=== PATIENT | male | born 1965 | race Caucasian/White ===

== ENCOUNTER 2018-02-24 17:50 | Emergency (ER) | payer BC ==
[~2018-02-24] VITALS: Ht 167.6 cm; Wt 81.6 kg
[2018-02-24] MEDS ORDERED: cloNIDine HCL 0.1 MG TAB PO ONE (18:30)
[2018-02-24 19:20] LABS: Basophils # (auto) 0 uL; Basophils % (auto) 0.4 % (0.0-2.0); Eosinophils # (auto) 0.2 uL; Eosinophils % (auto) 1.5 % (0.0-7.0); Hematocrit 45.1 % (41.0-53.0); Hemoglobin 15.5 g/dL (13.5-17.5); Lymphocytes # (auto) 1.9 uL; Lymphocytes % (auto) 18.3 % (10.0-50.0); Mean Corpuscular Hemoglobin 31.4 pg (28.0-32.0); Mean Corpuscular Hgb Conc. 34.4 g/dL (32.0-36.0); Mean Corpuscular Volume 91.4 fL (80.0-100.0); Monocytes % (auto) 9.5 % (0.0-12.0); Neutrophils # (auto) 7.4 uL; Neutrophils % (auto) 70.3 % (37.0-80.0); Nucleated Red Blood Cells % 0.1 %; Platelet Count (auto) 287 10^3/uL (140-450); Red Blood Cells 4.93 10^6/uL (4.5-5.90); Red Cell Distribution Width 12.7 % (11.8-14.3); White Blood Cell 10.5 10^3/uL (4.4-10.8)
[2018-02-24 19:39] LABS: Alanine Aminotransferase 43 U/L (16-61); Albumin 3.9 g/dL (3.4-5.0); Anion Gap 11 (5-15); Aspartate Aminotransferase 21 U/L (15-37); BUN/Creatinine Ratio 23.4; Blood Urea Nitrogen 22 mg/dL (7-18); Calcium 8.9 mg/dL (8.5-10.1); Carbon Dioxide 22 mmol/L (21-32); Chloride 107 mmol/L (98-107); GFR African American 108 mL/min; GFR Non-African American 89 mL/min; Glucose 92 mg/dL (74-106); Magnesium 2.1 mg/dL (1.6-2.6); Potassium 3.8 mmol/L (3.5-5.1); Sodium 140 mmol/L (136-145)
[2018-02-24 19:44] LABS: Alkaline Phosphatase 81 U/L (45-117); Bilirubin, Total 0.4 mg/dL (0.2-1.0); Total Protein 7.7 g/dL (6.4-8.2)
[2018-02-24 19:45] VITALS: BP 111/81
== END 2018-02-24 20:50 | disposition home or self-care (01) ==
LOC: ER 17:50
DX: R07.89 Other chest pain (principal); I10 Essential (primary) hypertension
CPT/HCPCS: 36415; 80053; 83735; 84484; 85025; 93005; 99285; J7030

== ENCOUNTER 2019-09-17 23:13 | Emergency (ER) | payer BC ==
[~2019-09-17] VITALS: Ht 167.6 cm; Wt 86.2 kg
[2019-09-17] MEDS ORDERED: diphenhdrAMINE HCL 50 MG/1 ML VL IV ONE (23:45)
[2019-09-17] MEDS ORDERED: SODIUM CHLORIDE 0.9% 1,000 ML IV ONE (23:45)
[2019-09-17] MEDS ORDERED: methylPREDNISolone SOD SUCC 125 MG/2 ML VL IV ONE (23:45)
[2019-09-18 01:45] LABS: Urine WBC None Seen /hpf (0 - 3)
[2019-09-18 01:49] VITALS: BP 138/93
[2019-09-18 02:11] LABS: Urine Bacteria NONE SEEN /hpf (None Seen); Urine Blood Negative /uL (Negative); Urine Specific Gravity 1.007 (1.001-1.035)
== END 2019-09-18 01:56 | disposition home or self-care (01) ==
LOC: ER 23:15
DX: B02.9 Zoster without complications (principal); I10 Essential (primary) hypertension
CPT/HCPCS: 70450; 81001; 96374; 96375; 99284; J1200; J2930; J7030

== ENCOUNTER 2020-02-28 20:46 | Emergency (ER) | payer BC ==
[~2020-02-28] VITALS: Ht 167.6 cm; Wt 86.2 kg
[2020-02-28 21:51] LABS: Urine Bacteria FEW /hpf (None Seen); Urine Blood Negative /uL (Negative); Urine Mucus FEW (None Seen); Urine Specific Gravity 1.009 (1.001-1.035); Urine WBC 20 /hpf (0 - 3)
[2020-02-28 22:04] LABS: Basophils # (auto) 0 10 ^3/uL (0-0.2); Basophils % (auto) 0.3 % (0.0-2.0); Eosinophils # (auto) 0.2 10 ^3/uL (0-0.8); Eosinophils % (auto) 1.3 % (0.0-7.0); Hematocrit 44.4 % (41.0-53.0); Hemoglobin 15.3 g/dL (13.5-17.5); Lymphocytes # (auto) 2.3 10 ^3/uL (0.4-5.4); Lymphocytes % (auto) 19.6 % (10.0-50.0); Mean Corpuscular Hemoglobin 30.7 pg (28.0-32.0); Mean Corpuscular Hgb Conc. 34.3 g/dL (32.0-36.0); Mean Corpuscular Volume 89.4 fL (80.0-100.0); Monocytes # (auto) 1.1 10 ^3/uL (0-1.3); Monocytes % (auto) 9.4 % (0.0-12.0); Neutrophils # (auto) 8.2 10 ^3/uL (1.6-8.6); Neutrophils % (auto) 69.4 % (37.0-80.0); Nucleated Red Blood Cells % 0.1 %; Platelet Count (auto) 283 10^3/uL (140-450); Red Blood Cells 4.97 10^6/uL (4.5-5.90); Red Cell Distribution Width 12.8 % (11.8-14.3); White Blood Cell 11.8 10^3/uL (4.4-10.8)
[2020-02-28 22:23] LABS: Albumin 4.2 g/dL (3.4-5.0); Calcium 8.9 mg/dL (8.5-10.1); Potassium 3.6 mmol/L (3.5-5.1)
[2020-02-28 22:26] LABS: BUN/Creatinine Ratio 15.2; Bilirubin, Total 0.7 mg/dL (0.2-1.0); Total Protein 7.6 g/dL (6.4-8.2)
[2020-02-29] MEDS ORDERED: metroNIDAZOLE 500 MG TAB PO ONE (01:15)
[2020-02-29] MEDS ORDERED: CIPROFLOXACIN HCL 500 MG TAB PO ONE (01:15)
[2020-02-29 01:55] VITALS: BP 142/91
== END 2020-02-29 01:58 | disposition home or self-care (01) ==
LOC: ER 20:46
DX: N39.0 Urinary tract infection, site not specified (principal); K52.9 Noninfective gastroenteritis and colitis, unspecified; K76.0 Fatty (change of) liver, not elsewhere classified; I10 Essential (primary) hypertension; Z87.442 Personal history of urinary calculi
CPT/HCPCS: 36415; 74176; 80053; 81001; 82150; 83690; 85025

== ENCOUNTER 2021-03-01 11:15 | Emergency (ER) | payer BC ==
[~2021-03-01] VITALS: Ht 167.6 cm; Wt 83.9 kg
[~2021-03-01 11:15] MED LIST: METO25TA93 PO; MISC450C PO; MULT-1058 PO; PANT40T PO; TADA20TA PO
[2021-03-01] MEDS ORDERED: ASPirin 81 mg TAB PO ONE (11:45)
[2021-03-01 12:07] LABS: Basophils # (auto) 0.2 10 ^3/uL (0-0.2); Eosinophils # (auto) 0.2 10 ^3/uL (0-0.8); Eosinophils % (auto) 2.2 % (0.0-7.0); Hemoglobin 15.7 g/dL (13.5-17.5); Lymphocytes # (auto) 1.7 10 ^3/uL (0.4-5.4); Lymphocytes % (auto) 16.2 % (10.0-50.0); Mean Corpuscular Hemoglobin 30.7 pg (28.0-32.0); Mean Corpuscular Volume 90.2 fL (80.0-100.0); Monocytes # (auto) 0.8 10 ^3/uL (0-1.3); Neutrophils # (auto) 7.5 10 ^3/uL (1.6-8.6); Neutrophils % (auto) 71.6 % (37.0-80.0); Nucleated Red Blood Cells % 0.2 %; Platelet Count (auto) 317 10^3/uL (140-450); Red Cell Distribution Width 12.8 % (11.8-14.3); White Blood Cell 10.5 10^3/uL (4.4-10.8)
[2021-03-01 12:27] LABS: Albumin 4.2 g/dL (3.4-5.0); Anion Gap 8 (5-15); Blood Urea Nitrogen 13 mg/dL (7-18); Calcium 9.2 mg/dL (8.5-10.1); Carbon Dioxide 25 mmol/L (21-32); Chloride 106 mmol/L (98-107); Glucose 102 mg/dL (74-106); Magnesium 2.2 mg/dL (1.6-2.6); Potassium 3.9 mmol/L (3.5-5.1); Sodium 139 mmol/L (136-145)
[2021-03-01 12:30] LABS: INR 0.97 (0.9-1.15); Partial Thromboplastin Time 26.7 sec (23.0-31.2)
[2021-03-01 12:34] LABS: Alanine Aminotransferase 38 U/L (16-61); Alkaline Phosphatase 99 U/L (45-117); Aspartate Aminotransferase 18 U/L (15-37); BUN/Creatinine Ratio 13.7; Bilirubin, Total 0.4 mg/dL (0.2-1.0); GFR African American 105 mL/min; GFR Non-African American 87 mL/min; Total Protein 7.8 g/dL (6.4-8.2)
[2021-03-01 17:03] VITALS: BP 119/74
== END 2021-03-01 17:32 | disposition home or self-care (01) ==
LOC: ER 11:15
DX: R07.89 Other chest pain (principal); R94.6 Abnormal results of thyroid function studies; I10 Essential (primary) hypertension; K21.9 Gastro-esophageal reflux disease without esophagitis; F17.210 Nicotine dependence, cigarettes, uncomplicated; Z79.899 Other long term (current) drug therapy; Z90.49 Acquired absence of other specified parts of digestive tract
CPT/HCPCS: 36415; 71045; 80053; 83735; 83880; 84443; 84484; 85025; 85379; 85610; 85730; 93005

== ENCOUNTER 2021-12-02 09:43 | Emergency (ER) | payer BC ==
[~2021-12-02] VITALS: Ht 167.6 cm; Wt 83.5 kg
[2021-12-02 10:12] LABS: Basophils # (auto) 0.1 10 ^3/uL (0-0.2); Basophils % (auto) 0.5 % (0.0-2.0); Eosinophils # (auto) 0.1 10 ^3/uL (0-0.8); Eosinophils % (auto) 0.9 % (0.0-7.0); Hematocrit 46.7 % (41.0-53.0); Hemoglobin 15.7 g/dL (13.5-17.5); Lymphocytes # (auto) 1.6 10 ^3/uL (0.4-5.4); Lymphocytes % (auto) 15.7 % (10.0-50.0); Mean Corpuscular Hemoglobin 30.3 pg (28.0-32.0); Mean Corpuscular Hgb Conc. 33.7 g/dL (32.0-36.0); Mean Corpuscular Volume 89.9 fL (80.0-100.0); Monocytes # (auto) 0.7 10 ^3/uL (0-1.3); Monocytes % (auto) 7.4 % (0.0-12.0); Neutrophils # (auto) 7.6 10 ^3/uL (1.6-8.6); Neutrophils % (auto) 75.5 % (37.0-80.0); Red Blood Cells 5.19 10^6/uL (4.5-5.90); Red Cell Distribution Width 12.6 % (11.8-14.3); White Blood Cell 10.1 10^3/uL (4.4-10.8)
[2021-12-02 10:39] LABS: Albumin 4.1 g/dL (3.4-5.0); BUN/Creatinine Ratio 16.5; Calcium 9.3 mg/dL (8.5-10.1); Potassium 3.9 mmol/L (3.5-5.1)
[2021-12-02 10:44] LABS: Total Protein 7.8 g/dL (6.4-8.2)
[2021-12-02 11:24] LABS: Bilirubin, Total 0.4 mg/dL (0.2-1.0)
[2021-12-02 14:29] VITALS: BP 158/86
== END 2021-12-02 14:28 | disposition home or self-care (01) ==
LOC: ER 09:43
DX: R07.89 Other chest pain (principal); I10 Essential (primary) hypertension; F17.210 Nicotine dependence, cigarettes, uncomplicated; Z90.49 Acquired absence of other specified parts of digestive tract
CPT/HCPCS: 36415; 70450; 71045; 80053; 84484; 85025; 93005

== ENCOUNTER 2025-08-02 14:31 | Inpatient (IN) | payer BC ==
[~2025-08-02] VITALS: Ht 167.6 cm; Wt 90.0 kg
[2025-08-02 14:56] LABS: Hematocrit 52.1 % (41.0-53.0); Hemoglobin 17.8 g/dL (13.5-17.5); Mean Corpuscular Hemoglobin 31.3 pg (28.0-32.0); Mean Corpuscular Volume 92.0 fL (80.0-100.0); Nucleated Red Blood Cells % 0.1 %
[2025-08-02 15:07] LABS: Chloride 104 mmol/L (98-107); Potassium 4.2 mmol/L (3.5-5.1); Sodium 138 mmol/L (136-145)
[2025-08-02 15:08] LABS: Anion Gap 9 (5-15); Calcium 9.4 mg/dL (8.7-10.4); Carbon Dioxide 25 mmol/L (20-31)
[2025-08-02 15:13] LABS: BUN/Creatinine Ratio 9.2 (10.0-20.0); Glucose 91 mg/dL (74-106)
--- NOTE | 2025-08-02 15:13 | DVH ---
CHEST RADIOGRAPH Indication: CP Technique: Frontal and lateral view of the chest was obtained Comparison: CHEST PORTABLE on DOS: 12/02/21, CHEST PORTABLE on DOS: 03/01/21 FINDINGS: Lines and Tubes: None Lungs: Clear Pleura: No effusion. No pneumothorax. Cardiomediastinal contours: Unremarkable Bones: Unremarkable IMPRESSION: No evidence of acute disease.
[2025-08-02 15:14] LABS: Blood Urea Nitrogen 9 mg/dL (9-23)
[2025-08-02 15:56] LABS: RBC Morphology Normal
[2025-08-02] MEDS: hydrALAZINE HCL 20 MG/ML VL IV ONE (18:48)
[2025-08-02] MEDS ORDERED: ONDANSETRON HCL 4 MG/2 ML VIAL IV PRN (21:45)
[2025-08-02 22:26] LABS: Alanine Aminotransferase 35.0 U/L (7-40); Albumin 4.7 g/dL (3.2-4.8); Alkaline Phosphatase 88.0 U/L (46-116); Bilirubin, Direct 0.2 mg/dL (<0.3); Bilirubin, Total 0.7 mg/dL (0.2-1.0); Magnesium 1.9 mg/dL (1.6-2.6); Total Protein 7.3 g/dL (5.7-8.2)
--- NOTE | 2025-08-02 22:48 | DVH ---
Carotid Duplex Clinical History: dizziness Comparison: None Technique: Duplex Doppler evaluation of the extracranial carotid and vertebral arteries including color Doppler and spectral/pulsed waveform analysis was performed. Findings: RIGHT SIDE: The peak systolic velocities are 119 cm/s in the CCA, 91 cm/s in the ICA. The ICA/CCA ratio is 0.76. The external carotid artery is patent with peak systolic velocity of 151 cm/s proximally. There is appropriate antegrade flow in the right vertebral artery. No significant atherosclerotic tristin que. LEFT SIDE: The peak systolic velocities are 127 cm/s in the CCA, 71 cm/s in the ICA. The ICA/CCA ratio is 0.56. The external carotid artery is patent with peak systolic velocity of 120 cm/s proximally. There is appropriate antegrade flow in the left vertebral artery. No significant atherosclerotic plaq ue. Bilateral thyroid lobe heterogeneous and cystic structures measure up to 1.0 cm on the right and 0.7 cm on the left. IMPRESSION: 1. No hemodynamically significant stenosis noted in the right carotid system. 2. No hemodynamically significant stenosis noted in the left carotid system. 3. Elevated velocity of the right external carotid artery. 4. Bilateral thyroid lobe heterogeneous and cystic structures as discussed above. Nonemergent thyroid ultrasound recommended for further evaluation. Reference: Radiology 2003; 229:340-346 Normal ICA PSV is <125 cm/sec and no plaque or intimal thickening is visible sonographically additional criteria include ICA/CCA PSV ratio <2.0 and ICA EDV <40 cm/sec <50% ICA stenosis ICA PSV is <125 cm/sec and plaque or intimal thickening is visible sonographically additional criteria include ICA/CCA PSV ratio <2.0 and ICA EDV <40 cm/sec 50-69% ICA stenosis ICA PSV is 125-230 cm/sec and plaque is visible sonographically additional criteria include ICA/CCA PSV ratio of 2.0-4.0 and ICA EDV of 40-100 cm/sec 70% ICA stenosis but less than near occlusion ICA PSV is >230 cm/sec and visible plaque and luminal narrowing are seen at richards-scale and color Dopp ler ultrasound (the higher the Doppler parameters lie above the threshold of 230 cm/sec, the greater the likelihood of severe disease) additional criteria include ICA/CCA PSV ratio >4 and ICA EDV >100 cm/sec
[2025-08-02] MEDS: PANTOPRAZOLE 40 MG TAB PO ONE (23:15)
[2025-08-02] MEDS: METOPROLOL SUCCINATE XL 50 MG TAB PO ONE (23:18)
[2025-08-02] MEDS: ENOXAPARIN SOD 40 MG/0.4 ML SYRINGE SC SCH (23:19)
[2025-08-03] VITALS (8 sets, daily range): BP systolic 114–137; BP diastolic 74–84; PULSE 89–114; RESP 16–18; TEMP 97.9–99.2; O2SAT 96–100
[2025-08-03 01:21] LABS: Urine Protein, UAD TRACE (Negative)
[2025-08-03 01:42] LABS: Amphetamine Screen, Urine Neg (NEGATIVE); Barbiturate Scree,Urine Neg (NEGATIVE); Benzodiazephine Screen, Urine Neg (NEGATIVE); Cannabinoid Screen, Urine Neg (NEGATIVE); Cocaine Screen, Urine Neg (NEGATIVE); Opiate Scree,Urine Neg (NEGATIVE); Phencyclidine Screen, Urine Neg (NEGATIVE)
[2025-08-03] MEDS: PANTOPRAZOLE 40 MG TAB PO SCH (06:24)
[2025-08-03 07:05] LABS: Hematocrit 50.4 % (41.0-53.0); Hemoglobin 17.3 g/dL (13.5-17.5); Mean Corpuscular Hemoglobin 31.3 pg (28.0-32.0); Mean Corpuscular Volume 91.4 fL (80.0-100.0); Nucleated Red Blood Cells % 0.1 %
[2025-08-03 07:22] LABS: Alanine Aminotransferase 27 U/L (7-40); Albumin 4.4 g/dL (3.2-4.8); Alkaline Phosphatase 70 U/L (46-116); Anion Gap 8 (5-15); BUN/Creatinine Ratio 11.1 (10.0-20.0); Bilirubin, Total 1.1 mg/dL (0.2-1.0); Blood Urea Nitrogen 10 mg/dL (9-23); Calcium 9.4 mg/dL (8.7-10.4); Carbon Dioxide 25 mmol/L (20-31); Chloride 105 mmol/L (98-107); Glucose 97 mg/dL (74-106); Potassium 4.0 mmol/L (3.5-5.1); Sodium 138 mmol/L (136-145); Total Protein 6.9 g/dL (5.7-8.2)
[2025-08-03] MEDS: METOPROLOL SUCCINATE XL 50 MG TAB PO SCH (09:13)
[2025-08-03] MEDS: LOSARTAN POTASSIUM 25 MG TAB PO SCH (09:14)
--- NOTE | 2025-08-03 09:45 | DVH ---
CT HEAD WITHOUT CONTRAST INDICATION: DIZZINESS EXAM DATE: 08/03/2025 09:13 AM COMPARISON: HEAD WITHOUT CONTRAST on DOS: 12/02/21 RADIATION DOSE: CTDIvol: 59 mGy, DLP: 1056 mGy*cm PROCEDURE: CT scans of the head were obtained from the vertex to the skull base. Sagittal and coronal reconstructions were provided. All CT scans at this medical facility are performed using dose modulation techniques as appropriate t o a performed exam including the following: Automated exposure control was utilized; adjustment of th e MA and/or KV according to patient size; and use of iterative reconstruction technique. FINDINGS: There is sulcal and ventricular prominence. The brainshows normal morphology and richards-whi te matter differentiation, without intracranial hemorrhage, extra-axial fluid collection, mass effect or acute large vessel infarct. The ventricles are normal in size. The basal cisterns are patent. The skull and visible facial bones are intact. The paranasal sinuses, mastoid air cells and middle ear c avities are well-aerated. The soft tissues of the scalp are unremarkable. IMPRESSION: No acute intracranial abnormality.
--- NOTE | 2025-08-03 11:16 | ED.PDOC ---
HPI Comments This is a 60 year old male presenting to the ED with chief complaint of HTN. Patient reports that he had noted his blood pressure to be 176/100 after work and is now experiencing mild chest pain with associated headache, nausea, and bilateral shoulder pain. Patient relays that his BP is never normally this high. Patient denies any SOB, dizziness, vomiting, abdominal pain, syncope, or further symptoms at this time. Chief Complaint: High Blood Pressure Time Seen by MD: 14:58 Primary Care Provider: PEPE Pierce Notes: Nurses Notes, Medications, Allergies Allergies: Coded Allergies: NO KNOWN ALLERGIES (Unverified , 07/23/14) Home Meds Reported Medications Multiple Vitamins W/ Minerals (Multivitamin) 1 Tab Tab, 1 TAB PO DAILY, TAB 07/12/20 Misc Natural Products (SAW [place]) Unknown Strength Cap, PO DAILY, CAP 07/12/20 Tadalafil (Cialis) 20 Mg Tab, 20 MG PO PRN, TAB 07/12/20 Pantoprazole Sodium Sesquihydr (Pantoprazole Sodium) 40 Mg Tab, 40 MG PO DAILY, TAB 07/12/20 Metoprolol Succinate (Metoprolol Succinate Er) 25 Mg Tab, 25 MG PO DAILY for 30 Days, MG 07/12/20 Information Source: Patient Mode of Arrival: Ambulatory Severity: Moderate Timing: Hours Duration: Since onset Prehospital treatment: None Location: Chest (L) Radiation: Shoulder (R), Shoulder (L) Quality: Aching Onset: At Rest Cardiac Risk Factors: HTN PE Risk Factors: None Past Medical History PAST MEDICAL HISTORY: GERD, HTN Surgical History: Cholecystectomy, Denies all surgeries Family History Family History: Reviewed,noncontributory to illness, Family hx of heart arnulfo, Family hx of HTN Social History Smoker: Chew, Less Than 1 Pack/Day Alcohol: Occasionally Drugs: Denies Drug Use Lives In: Home Constitutional: denies: chills, diaphoresis, fatigue, fever, malaise, sweats, weakness, others EENTM: denies: blurred vision, double vision, ear bleeding, ear discharge, ear drainage, ear pain, ear ringing, eye pain, eye redness, hearing loss, mouth pain, mouth swelling, nasal discharge, nose bleeding, nose congestion, nose pain, photophobia, tearing, throat pain, throat swelling, voice changes, others Respiratory: denies: cough, hemoptysis, orthopnea, SOB at rest, shortness of breath, SOB with excertion, stridor, wheezing, others Cardiovascular: reports: chest pain; denies: dizzy spells, diaphoresis, Dyspnea on exertion, edema, irregular heart beat, left arm pain, lightheadedness, palp itations, PND, syncope, others Gastrointestinal: reports: nausea; denies: abdomen distended, abdominal pain, blood streaked bowels, constipated, diarrhea, dysphagia, difficulty swallowing, hematemesis, melena, poor appetite, poor fluid intake, rectal bleeding, rectal pain, vomiting, others Genitourinary: denies: burning, dysuria, flank pain, frequency, hematuria, incontinence, penile discharge, penile sore, pain, testicle pain, testicle swelling, urgency, others Neurological: reports: headache; denies: dizziness, fainting, left sided numbness, left sided weakness, numbness, paresthesia, pre-existing deficit, right sided numbness, right sided weakness, seizure, speech problems, tingling, tremors, weakness, others Musculoskeletal: reports: others (shoulder pain); denies: back pain, gout, joint pain, joint swelling, muscle pain, muscle stiffness, neck pain Integumetry: denies: bruises, change in color, change in hair/nails, dryness, laceration, lesions, lumps, rash, wounds, others Allergic/Immunocompromised: denies: Difficulty Healing, Frequent Infections, Hives, Itching, others Hematologic/Lymphatic: denies: anemia, blood clots, easy bleeding, easy bruising, swollen glands, others Endocrine: denies: excessive hunger, excessive sweating, excessive thirst, excessive urination, flushing, intolerance to cold, intolerance to heat, unexplained weight gain, unexplained weight loss, others Psychiatric: denies: anxiety, bipolar disorder, depression, hopeless, panic disorder, schizophrenia, sleepless, suicidal, others All Other Systems: Reviewed and Negative Physical Exam General Appearance: No Apparent Distress, Normal HEENT: Normal ENT Inspection, Pharynx Normal, TMs Normal Neck: Full Range of Motion, Non-Tender, Normal, Normal Inspection Respiratory: Chest Non-Tender, Lungs Clear, No Accessory Muscle Use, No Respiratory Distress, Normal Breath Sounds Cardiovascular: No Edema, No JVD, No Murmur, No Gallop, Normal Peripheral Pulses, Regular Rate/Rhythm Breast Exam: Deferred Gastrointestinal: No Organomegaly, Non Tender, No Pulsatile Mass, Normal Bowel Sounds, Soft Genitalia: Deferred Pelvic: Deferred Rectal: Deferred Extremities: No calf tenderness, Normal capillary refill, Normal inspection, Normal range of motion, Non-tender, No pedal edema Musculoskeletal : Apperance: Normal Neurologic: Alert, knockout worker II-XII nml as Tested, No Motor Deficits, Normal Affect, Normal Mood, No Sensory Deficits Cerebellar Function: Normal Reflexes: Normal Skin: Dry, Normal Color, Warm Lymphatic: No Adenopathy Was a procedure done? Was a procedure done?: No CP Differential Dx Differential Diagnosis: Heart Failure, MAT, IA Differential Diagnosis: HTN Essential, HTN Accelerated Differential Diagnosis: Gastritis, Myocardial Infarction, Pericarditis X-Ray, Labs, Meds, VS Vital Signs Date Time Temp Pulse Resp B/P (MAP) Pulse Ox O2 Delivery O2 Flow Rate FiO2 08/02/25 17:37 94 17 98 Room Air 08/02/25 17:37 97.9 94 17 165/108 (127) 98 97.9 08/02/25 14:40 103 08/02/25 14:32 97.3 101 18 155/98 95 97.3 Lab Test 08/02/25 17:32 08/02/25 15:30 08/02/25 14:45 Range/Units Troponin I High Sensitivity < 3 L 3 L 3 L </=54 ng/L White Blood Count 11.8 H 4.4-10.8 10^3/uL Red Blood Count 5.67 4.5-5.90 10^6/uL Hemoglobin 17.8 H 13.5-17.5 g/dL Hematocrit 52.1 41.0-53.0 % Mean Corpuscular Volume 92.0 80.0-100.0 fL Mean Corpuscular Hemoglobin 31.3 28.0-32.0 pg Mean Corpuscular Hemoglobin Concent 34.1 32.0-36.0 g/dL Red Cell Distribution Width 14.0 11.8-14.3 % Platelet Count 262 140-450 10^3/uL Mean Platelet Volume 7.0 6.9-10.8 fL Neutrophils (%) (Auto) 70.1 37.0-80.0 % Lymphocytes (%) (Auto) 18.2 10.0-50.0 % Monocytes (%) (Auto) 9.2 0.0-12.0 % Eosinophils (%) (Auto) 2.1 0.0-7.0 % Basophils (%) (Auto) 0.4 0.0-2.0 % Neutrophils # (Auto) 8.3 1.6-8.6 10 ^3/uL Lymphocytes # (Auto) 2.2 0.4-5.4 10 ^3/uL Monocytes # (Auto) 1.1 0-1.3 10 ^3/uL Eosinophils # (Auto) 0.2 0-0.8 10 ^3/uL Basophils # (Auto) 0.1 0-0.2 10 ^3/uL Nucleated Red Blood Cells 0.1 % Platelet Estimate Adequate Red Blood Cell Morphology Normal Sodium Level 138 136-145 mmol/L Potassium Level 4.2 3.5-5.1 mmol/L Chloride Level 104 98-107 mmol/L Carbon Dioxide Level 25 20-31 mmol/L Anion Gap 9 5-15 Blood Urea Nitrogen 9 9-23 mg/dL Creatinine 0.98 0.700-1.30 mg/dL Glomerular Filtration Rate Calc 87 >90 mL/min BUN/Creatinine Ratio 9.2 L 10.0-20.0 Serum Glucose 91 74-106 mg/dL Calcium Level 9.4 8.7-10.4 mg/dL [place] [id number] Ph: [phone] DIAGNOSTIC IMAGING Diagnostic Imaging Report : [id number] Signed PATIENT: DEMETRIUS MONAHANACCT: [id number] UNIT: [id number] : 1965 LOC: ER ROOM / BED: / AGE / SEX: 60 / M ADM STATUS: REG ER SERVICE [id number] ORDERING PHYSICIAN: TONY ABURTO MD PROCEDURE(s): CXR2 - CHEST TWO VIEWS ROUTINE REASON: CP ORDER NUMBER(s): [id number], ACCESSION NUMBER(s): [id number] CHEST RADIOGRAPH Indication: CP Technique: Frontal and lateral view of the chest was obtained Comparison: CHEST PORTABLE on DOS: 12/02/21, CHEST PORTABLE on DOS: 03/01/21 FINDINGS: Lines and Tubes: None Lungs: Clear Pleura: No effusion. No pneumothorax. Cardiomediastinal contours: Unremarkable Bones: Unremarkable IMPRESSION: No evidence of acute disease. ATED BY: JAIRO FARIA MD DICTATED DATE/TIME: 08/02/251510 SIGNED BY: JAIRO FARIA MD SIGNED DATE/TIME: 08/02/251510 CC: Time of 1ST Reevaluation: 15:57 Reevaluation 1ST: Unchanged Patient Education/Counseling: Diagnosis, Treatment Family Education/Counseling: No Family Present SEPSIS Sepsis Screen Date sepsis recognized/suspect: Aug 02, 2025 Time Sepsis recognized/suspect: 1433 Recent Procedure: No On Antibiotic Therapy: No Respiratory Rate >20: No Heart Rate >90: Yes Temp<36 C (96.8 F) or >38.3 C: No SBP <90 or MAP <65 mmHG: No New Acute Mental Status Change: No Is the patient on CPAP, BIPAP,: No Physician Orders Chest Two Views Routine (08/02/25 14:41) Electrocardigram (08/02/25 14:36) Electrocardigram (08/02/25 15:36) Electrocardigram (08/02/25 17:36) Vital Signs Date Time Temp Pulse Resp B/P (MAP) Pulse Ox O2 Delivery O2 Flow Rate FiO2 08/02/25 17:37 94 17 98 Room Air 08/02/25 17:37 97.9 94 17 165/108 (127) 98 97.9 08/02/25 14:40 103 08/02/25 14:32 97.3 101 18 155/98 95 97.3 Laboratory Tests Test 08/02/25 14:45 White Blood Count 11.8 10^3/uL (4.4-10.8) H Departure 1 Departure Time of Disposition: 18:21 (Patient presented with hypertension and symptoms concerning for hypertensive emergency. Patient is receiving iv blood pressure medications requiring intensive monitoring. Data: 1. I ordered and reviewed the result of at least 3 labs including a CBC, BMP, and Urinalysis. 2. I independent ly interpreted the following tests: Chest x-ray is benign. EKG which is Normal Sinus RhythmRisk:This patient has a high risk of morbidity due to further diagnostic testing or treatment and may suffer from an acute cardiac disorder. Workup reveals hypertensive emergency and patient should be admitted for further workup. and possible expert consultation. ) Impression: Primary Impression: Acute chest pain Additional Impression: Hypertensive urgency Disposition: 09 ADMITTED INPATIENT Admit to: Tele Condition: Guarded Critical Care Note Critical Care Time?: Yes Critical care comment: Hypertensive urgency Authorized and Performed by: Tony Aburto MD Total critical care time: Approximately 37 minutes Due to a high probability of clinically significant, life threatening deterioration, the patient required my highest level of preparedness to intervene emergently and I personally spent this critical care time directly and personally managing the patient. This critical care time included obtaining a history; examining the patient; pulse oximetry; ordering and review of studies; arranging urgent treatment with development of a management plan; evaluation of patient's response to treatment; frequent reassessment; and, discussions with other providers. This critical care time was performed to assess and manage the high probability of imminent, life-threatening deterioration that could result in multi-organ failure. It was exclusive of separately billable procedures and treating other patients and teaching time. Please see my other sections and the rest of the note for further information on patient assessment and treatment. Stability Stability form required: No Heart Score Heart Score: Heart Score Response (Comments) Value History Highly Suspicious 2 EKG Normal 0 Age 45-64 1 Risk Factors 1 or 2 risk factors 1 Troponin 1-2 x's Normal limit 1 Total 5 I personally scribed for TONY ABURTO MD ([email or web address]) on 08/02/25 at 14:59. Electronically submitted by Marshall Hall ([email or web address]). I personally scribed for TONY ABURTO MD ([email or web address]) on 08/02/25 at 16:46. Electronically submitted by Frank Gagnon ([email or web address]). TONY ABURTO MD Aug 02, 2025 14:59
--- NOTE | 2025-08-03 11:26 | DVHHPRES ---
History of Present Illness Resident Creating Document: JHONNY LEDEZMA RESIDENT History of Present Illness 60-year-old male with a PMH of GERD, hypertension, renal stones, cholecystectomy and abscess drainage, ankle and knee surgery has come to the ED with the chief complaints of feeling unwell and high blood pressure. Patient reports that he was having slight diaphoresis, ringing of the ears more than usual, dizziness, nausea, mild right shoulder pain for which he checked his blood pressure at home, showed 172/106 mmHg for which she decided to visit the ER. Patient denies any vomiting, fever, chills, palpitations, chest pain, shortness of breath or any urinary symptoms. On inquiry, he reports that he took tadalafil yesterday night which usually causes his heart rate to increase and it has been 3-4 months that his primary care doctor has decreased his blood pressure medication metoprolol succinate from 25 mg to 10 mg. On admission patient's heart rate was 120, temp 98.4, RR 18, BP 1 55/98 mmHg, SpO2 99% in RA. WBC 11.8, hemoglobin 17.8 and tropes were negative. Chest x-ray shows no evidence of acute distress. We are admitting the patient for further workup and management. Past medical history: As stated above Past surgical history: As stated above family history: Heart disease and hypertension in father, grandfather and uncles who also of [place] social history: patient used to smoke when he was younger and has restarted smoking since last 2 months 2 cigarettes/day and chews tobacco. Denies any alcohol or illicit drug abuse Primary care physician: Dr. He at [facility] medication: Metoprolol succinate 10 mg, pantoprazole 40 mg, tadalafil Allergies: Seasonal, no known medical allergy Code status: Full code Review of Systems Constitutional: Yes: Other (Dizziness); No: Fever, Chills, Sweats, Weakness, Malaise Eyes: No: Pain, Vision change, Conjunctivae inflammation, Eyelid inflammation, Other, Redness ENT: Other (Tinnitus); No: Ear pain, Ear discharge, Nose pain, Nose discharge, Nose congestion, Mouth pain, Mouth swelling, Throat pain, Throat swelling Respiratory: No: Cough, Dry, Shortness of breath, SOB with excertion, Wheezing, Hemoptysis, Pleuritic Pain, Sputum, Wheezing, Other Cardiovascular: No: Chest Pain, Palpitations, Orthopnea, Paroxysmal Noc. Dyspnea, Edema, Lt Headedness, Other Gastrointestinal: Nausea; No: Vomiting, Abdominal Pain, Diarrhea, Constipation, Melena, Hematochezia, Other Genitourinary: No Dysuria, No Frequency, No Incontinence, No Hematuria, No Retention, No Other Musculoskeletal: No: other, neck pain, shoulder pain, arm pain, back pain, hand pain, leg pain, foot pain Skin: No: Rash, Lesions, Jaundice, Bruising, Other Neurological: No: Weakness, Numbness, Incoordination, Change in speech, Confusion, Seizures, Other Allergies: Coded Allergies: NO KNOWN ALLERGIES (Unverified , 07/23/14) Exam Vital Signs Vital Signs Date Time Temp Pulse Resp B/P (MAP) Pulse Ox O2 Delivery O2 Flow Rate FiO2 08/02/25 19:39 98.4 120 16 154/94 (114) 99 98.4 08/02/25 17:37 Room Air Exam General Appearance: Alert, Oriented X3, Cooperative, Not in acute distress HEENT: Atraumatic, Mucous membranes moist/pink Respiratory: Clear to auscultation, Normal air movement, No added sounds Cardiovascular: Regular rate, Normal S1, Normal S2, No murmurs Abdominal: Active bowel sounds, Soft, no distention, no tenderness Extremities: No edema, Normal pulses, No tenderness/swelling Skin: No Significant rash, except past surgical scars, face is slightly fl ushed Neuro: Normal speech, sensorimotor deficits none Psych/Mental Status: Mental status NL, Mood NL Labs/Xrays Labs Test 08/02/25 17:32 08/02/25 14:45 Range/Units Troponin I High Sensitivity < 3 L </=54 ng/L White Blood Count 11.8 H 4.4-10.8 10^3/uL Red Blood Count 5.67 4.5-5.90 10^6/uL Hemoglobin 17.8 H 13.5-17.5 g/dL Hematocrit 52.1 41.0-53.0 % Mean Corpuscular Volume 92.0 80.0-100.0 fL Mean Corpuscular Hemoglobin 31.3 28.0-32.0 pg Mean Corpuscular Hemoglobin Concent 34.1 32.0-36.0 g/dL Red Cell Distribution Width 14.0 11.8-14.3 % Platelet Count 262 140-450 10^3/uL Mean Platelet Volume 7.0 6.9-10.8 fL Neutrophils (%) (Auto) 70.1 37.0-80.0 % Lymphocytes (%) (Auto) 18.2 10.0-50.0 % Monocytes (%) (Auto) 9.2 0.0-12.0 % Eosinophils (%) (Auto) 2.1 0.0-7.0 % Basophils (%) (Auto) 0.4 0.0-2.0 % Neutrophils # (Auto) 8.3 1.6-8.6 10 ^3/uL Lymphocytes # (Auto) 2.2 0.4-5.4 10 ^3/uL Monocytes # (Auto) 1.1 0-1.3 10 ^3/uL Eosinophils # (Auto) 0.2 0-0.8 10 ^3/uL Basophils # (Auto) 0.1 0-0.2 10 ^3/uL Nucleated Red Blood Cells 0.1 % Platelet Estimate Adequate Red Blood Cell Morphology Normal Sodium Level 138 136-145 mmol/L Potassium Level 4.2 3.5-5.1 mmol/L Chloride Level 104 98-107 mmol/L Carbon Dioxide Level 25 20-31 mmol/L Anion Gap 9 5-15 Blood Urea Nitrogen 9 9-23 mg/dL Creatinine 0.98 0.700-1.30 mg/dL Glomerular Filtration Rate Calc 87 >90 mL/min BUN/Creatinine Ratio 9.2 L 10.0-20.0 Serum Glucose 91 74-106 mg/dL Calcium Level 9.4 8.7-10.4 mg/dL SEPSIS Sepsis Screen Date sepsis recognized/suspect: Aug 02, 2025 Time Sepsis recognized/suspect: 1736 Recent Procedure: No On Antibiotic Therapy: No Respiratory Rate >20: No Heart Rate >90: Yes Temp<36 C (96.8 F) or >38.3 C: No SBP <90 or MAP <65 mmHG: No New Acute Mental Status Change: No Is the patient on CPAP, BIPAP,: No Physician Orders Chest Two Views Routine (08/02/25 14:41) Electrocardigram (08/02/25 14:36) Electrocardigram (08/02/25 15:36) Electrocardigram (08/02/25 17:36) Admit (08/02/25 21:32) Code Status (08/02/25 21:32) Acetaminophen Tablet (Tylenol Tablet) (08/02/25 21:45) Ondansetron Hcl (Zofran) (08/02/25 21:45) Complete Blood Count (08/03/25 04:00) Comprehensive Metabolic Panel (08/03/25 04:00) Cardiac Diet-2gna,Lofat,Lochol (08/03/25 Breakfast) Condition: Unstable (08/02/25 21:32) Lovenox 40mg (08/02/25 21:45) Notify Md Of Changes From Base (08/02/25 21:32) Pantoprazole Tablet (Protonix Tablet) (08/02/25 21:45) Pantoprazole Tablet (Protonix Tablet) (08/03/25 06:00) Echo 2d Mode Cardiac Dop (08/02/25 21:32) B-Type Natriuretic Peptide (08/02/25 21:32) Carotid Duplx W Color Dop (08/02/25 21:32) Metoprolol Xl Succinate (Toprol Xl) (08/03/25 10:00) Urinalysis (08/02/25 21:32) Drug Screen (08/02/25 21:32) Hepatic Panel (08/02/25 21:32) Magnesium (08/02/25 21:32) Metoprolol Xl Succinate (Toprol Xl) (08/02/25 21:45) Losartan Tablet (Cozaar Tablet) (08/03/25 10:00) Orthostatic Vital Signs (08/02/25 21:32) Head Without Contrast (08/02/25 21:32) Thyroid Stimulating Hormone (08/02/25 21:32) Vital Signs Date Time Temp Pulse Resp B/P (MAP) Pulse Ox O2 Delivery O2 Flow Rate FiO2 08/02/25 19:39 98.4 120 16 154/94 (114) 99 98.4 08/02/25 18:48 165/108 08/02/25 17:37 94 17 98 Room Air 08/02/25 17:37 97.9 94 17 165/108 (127) 98 97.9 08/02/25 14:40 103 08/02/25 14:32 97.3 101 18 155/98 95 97.3 Laboratory Tests Test 08/02/25 14:45 White Blood Count 11.8 10^3/uL (4.4-10.8) H Medications Medications Dose Ordered Sig/Reji Route Start Time Stop Time Status Last Admin Dose Admin Hydralazine HCl 10 mg ONCE ONCE IV 08/02/25 18:30 08/02/25 18:37 DC 08/02/25 18:48 10 MG Assessment/Plan Assessment/Plan #Autonomic dysfunction, possibly medicine induced (tadalafil) #Hypertension - EKG - telemonitor - losartan 25 mg p.o. daily - Metoprolol succinate 25 mg p.o. daily - Zofran 4 mg IV q.4 PRN - Acetaminophen 325 mg p.o. q.4 PRN - BNP 4.92 - echo - UDS negative - UA normal - orthostatic vitals - carotid Doppler showed: No hemodynamically significant stenosis noted in the right or left carotid system. - CT scan of the head without contrast - chest x-ray shows no acute cardiopulmonary disease - tropes were negative - TSH 4.61 #Secondary polycythemia due to possible RADHA - monitor - outpatient follow up for sleep study #Bilateral thyroid lobe heterogeneous and cystic structures -seen in carotid Doppler- measure up to 1.0 cm on the right and 0.7 cm on the left, incidental finding -outpatient follow up -TSH #Obesity, BMI 32.0 kg/m2 - patient has been counseled extensively regarding need of weight loss, exercise, healthy lifestyle and cardiac diet over 8 minutes GI prophylaxis: Protonix 40 mg p.o. daily DVT prophylaxis: Lovenox 40 mg subcutaneous daily Diet: cardiac diet Goals of care discussed with the patient for more than 27 minutes: Full code status Case discussed with Dr. Navarro, patient Plan discussed with: Patient My Orders Orders - JHONNY LEDEZMA RESIDENT Procedure Category Date Status Time Admit ADMIT 08/02/25 Verified 21:32 Code Status CODE 08/02/25 Verified 21:32 Acetaminophen Tablet PHA 08/02/25 Verified (Tylenol Tablet) 21:45 Ondansetron Hcl PHA 08/02/25 Verified (Zofran) 21:45 Complete Blood Count LAB 08/03/25 Verified 04:00 Comprehensive LAB 08/03/25 Verified Metabolic Panel 04:00 Cardiac DIET 08/03/25 Verified Diet-2gna,Lofat,Lochol Breakfast Condition: Unstable JOSE A 08/02/25 Verified 21:32 Lovenox 40mg PHA 08/02/25 Verified 21:45 Notify Md Of Changes JOSE A 08/02/25 Verified From Base 21:32 Pantoprazole Tablet PHA 08/02/25 Verified (Protonix Tablet) 21:45 Pantoprazole Tablet PHA 08/03/25 Verified (Protonix Tablet) 06:00 Echo 2d Mode Cardiac US 08/02/25 Verified DOP 21:32 B-Type Natriuretic LAB 08/02/25 Verified Peptide 21:32 Carotid Duplx W Color US 08/02/25 Verified DOP 21:32 Metoprolol Xl PHA 08/03/25 Verified Succinate (Toprol Xl) 10:00 Urinalysis LAB 08/02/25 Verified 21:32 Drug Screen LAB 08/02/25 Verified 21:32 Hepatic Panel LAB 08/02/25 Verified 21:32 Magnesium LAB 08/02/25 Verified 21:32 Metoprolol Xl PHA 08/02/25 Verified Succinate (Toprol Xl) 21:45 Losartan Tablet PHA 08/03/25 Verified (Cozaar Tablet) 10:00 Orthostatic Vital ORDERS 08/02/25 Verified Signs 21:[address] 08/02/25 Verified 21:32 Thyroid Stimulating LAB 08/02/25 Verified Hormone 21:32 Date of Service: Aug 02, 2025 Billing Provider: ARBEN NAVARRO MD Common Visit Codes: [id number] INP/OBS CARE (HIGH) Secondary Visit Codes: [id number] CARE PLAN 30 MINUTES JHONNY LEDEZMA RESIDENT Aug 02, 2025 21:55
--- NOTE | 2025-08-03 11:43 | DVHPNRES ---
Progress Note Date Seen: Aug 03, 2025 Resident Creating Document: PAULO EATON RESIDENT Medical Necessity Reason Pt with a Central, PICC or Fol: No Subjective Review of Systems Clemente Ravi is a 60 -year old male with past medical histrory of GERD, hypertension, multiple renal stones, cholecystectomy and ankle and knee surgery who presented to the ED after a recorded high blood pressure reading at home of 176/104. The patient mentions he started feeling unwell with slight diaphoresis, slight tightness in the chest, ringing in the ears, dizziness and nausea, because of which he checked his blood pressure reading which was 176/104. Patient mentions his PCP reduced the dose of his metoprolol from 25 mg to 10 mg 1 month back,and he has not been recording his blood pressure regularly. Patient also mentions taking tadalafil occasionally for erectile dysfunction and [id number] testosterone. He denies any chest pain, fever chills or palpitations. Chest x-ray and head CT were unremarkable. Carotid artery Doppler showed bilateral thyroid lobe heterogeneous and cystic structures, but TSH was within normal limits. Past medical history: Hypertension, multiple renal stones, GERD Past surgical history: Cholecystectomy, ankle and knee surgery Family history: Heart disease and hypertension in father, grandfather and uncles who also of [place] Home medications : metoprolol succinate 10 mg, pantoprazole 20 mg, tadalafil Social & Personal history: Lives at home with family Smoking: Used to smoke when he was younger and has restarted smoking since last 2 months 2 cigarettes per day and chews tobacco Alcohol: Denies Drugs: Denies Allergies: No known allergies Patient seen and examined at bedside. Patient is alert and oriented to time, place person and responding to all questions. Patient is complaining of a headache. Eyes: No Pain, No Vision change, No Conjunctivae inflammation, No Eyelid inflammation, No Redness ENT: No Ear pain, No Ear discharge, No Nose pain, No Nose discharge, No Nose congestion, No Mouth pain, No Mouth swelling, No Throat pain, No Throat swelling Cardiovascular: No Chest Pain, No Palpitations, No Orthopnea, No Paroxysmal No Dyspnea, No Edema, No Lt Headedness Respiratory: No Cough, No Dry, No Shortness of breath, No SOB with exertion, No Wheezing, No Hemoptysis, No Pleuritic Pain, No Sputum Gastrointestinal: No Nausea, No Vomiting, No Abdominal Pain, No Diarrhea, No Constipation, No Melena, No Hematochezia Genitourinary: No Dysuria, No Frequency, No Incontinence, No Hematuria, No Retention Objective vital signs Vital Sign Date Time Temp Pulse Resp B/P (MAP) Pulse Ox O2 Delivery O2 Flow Rate FiO2 08/03/25 09:14 129/77 08/03/25 09:13 111 08/03/25 05:00 98.2 18 96 98.2 08/03/25 00:39 Room Air* 0 21 Total Intake and Output 08/02/25 08/02/25 08/03/25 15:00 23:00 07:00 Intake Total 250 ml Balance 250 ml medications Current Medications Medications Dose Ordered Sig/Reji Route Start Time Stop Time Status Last Admin Dose Admin Acetaminophen 325 mg Q4HP PRN PO 08/02/25 21:45 Ondansetron HCl 4 mg Q4HP PRN IV 08/02/25 21:45 Enoxaparin Sodium 40 mg Q24H SC 08/02/25 22:30 08/02/25 23:19 40 MG Pantoprazole Sodium 40 mg DAILY@0600 PO 08/03/25 06:00 08/03/25 06:24 40 MG Metoprolol Succinate 25 mg DAILY PO 08/03/25 10:00 08/03/25 09:13 25 MG Losartan Potassium 25 mg DAILY PO 08/03/25 10:00 08/03/25 09:14 25 MG Examination General Appearance: Cooperative. Well developed. Well nourished. NAD Head Exam: Normal inspection, patient has a red,flushed face Neck Exam: Normal inspection. Non-tender. Normal alignment Pulmonary/Respiratory: Chest non-tender. Clear bilateral breath sounds, no crackles, no wheezing. Cardiovascular/Chest: Regular rate and rhythm. No murmurs. No JVD. Peripheral Pulses: 2+ Radial (R). 2+ Radial (L). 2+ Pedal (R). 2+ Pedal (L) Abdominal Exam: Normal bowel sounds. Soft. normal abdomen, no visible veins, Nontender. No hepatospenomegaly. No masses Ankle Exam: Negative ankle edema Lower extremities: Negative lower extremity edema Neuro/Mental Status: A&O x4. Coherent. Thoughts/Psych: Normal thought pattern. Appropriate mood and affect. Good judgement and insight Skin Exam: Normal inspection. Normal color. Warm. Dry laboratory and microbiology Laboratory Tests 08/03/25 06:38 Test 08/03/25 06:38 Range/Units Serum Glucose 97 74-106 mg/dL Labs and/or images reviewed: Labs reviewed by me, Image(s) reviewed by me Problem List/Assessment/Plan Problem List/Assessment/Plan #Autonomic dysfunction, possibly medicine induced (tadalafil) #Hypertension,controlled - EKG - telemetry-non sustained v tachycardia - Losartan 25 mg p.o. daily - Metoprolol succinate 25 mg p.o. daily - Zofran 4 mg IV q.4 PRN - Acetaminophen 325 mg p.o. q.4 PRN - BNP 4.92 - echo pending - carotid Doppler showed: No hemodynamically significant stenosis noted in the right or left carotid system. - CT scan of the head without contrast- no acute abnormality - chest x-ray shows no acute cardiopulmonary disease - tropes were negative #Secondary polycythemia due to possible RADHA - monitor - outpatient follow up for sleep study -follow up with PCP for dose adjustment of OTC testosterone #Bilateral thyroid lobe heterogeneous and cystic structures -seen in carotid Doppler- measure up to 1.0 cm on the right and 0.7 cm on the left, incidental finding -outpatient follow up -TSH 2.45 #Obesity, BMI 32.0 kg/m2 - patient has been counseled extensively regarding need of weight loss, exercise, healthy lifestyle and cardiac diet over 8 minutes GI prophylaxis: Protonix 40 mg p.o. daily DVT prophylaxis: Lovenox 40 mg subcutaneous daily Diet: cardiac diet Goals of care: Full code, discussed for >23 minutes Plan discussed with patient Plan discussed with Dr Bradley Plan discussed with: Patient Date of Service: Aug 03, 2025 Billing Provider: PAT BRADLEY MD Common Visit Codes: [id number] INP/OBS CARE(HIGH) PAULO EATON RESIDENT Aug 03, 2025 10:07 PAT BRADLEY MD Aug 03, 2025 22:09
[2025-08-03] MEDS: ACETAMINOPHEN 325 MG TAB PO PRN (14:09)
[2025-08-03 18:59] LABS: Hematocrit 49.1 % (41.0-53.0); Hemoglobin 17.2 g/dL (13.5-17.5); Mean Corpuscular Hemoglobin 31.9 pg (28.0-32.0); Mean Corpuscular Volume 91.2 fL (80.0-100.0); Nucleated Red Blood Cells % 0.1 %
[2025-08-03 19:08] LABS: Anion Gap 8 (5-15); Carbon Dioxide 26 mmol/L (20-31); Chloride 105 mmol/L (98-107); Potassium 3.9 mmol/L (3.5-5.1); Sodium 139 mmol/L (136-145)
[2025-08-03 19:09] LABS: Calcium 9.3 mg/dL (8.7-10.4)
[2025-08-03 19:14] LABS: BUN/Creatinine Ratio 9.4 (10.0-20.0); Blood Urea Nitrogen 10 mg/dL (9-23); Glucose 91 mg/dL (74-106)
[2025-08-04 01:00] VITALS: BP 119/77; PULSE 79; RESP 17; TEMP 97.7; O2SAT 97
--- NOTE | 2025-08-04 03:43 | DVHSR ---
APPROVED REPORT EXAM: Two-dimensional and M-mode echocardiogram with Doppler and color Doppler. Blood Pressure: 116/74 mmHg INDICATION Chest Pain RISK FACTORS Height: 5'6, Weight: 198 DIMENSIONS LVDd4.6 (3.8-5.7cm)LA (2D)4.5 (1.9-4.0cm)Aortic Root3.2 (2.0-3.7cm) LVDs3.3 (2.5-4.0cm)LA (MM) (1.9-4.0cm)Aortic Cusp Exc1.4 (1.5-2.0cm) EF (%) 55.0 (55-70%)Rt. Atrium2.9 (1.9-4.0cm)Asc. Aorta cm IVSd0.9 (0.7-1.1cm)RV (D)3.6 (1.8-2.4cm) PWd0.8 (0.7-1.1cm) Mitral Valve MitralMitral Stenosis E wave1.06m/sMV Mean GR.mmHg A wave1.34m/sMV Peak GR.66mmHg E/A ratio0.82D MVAcm2 DECEL [id number] 1/2 Timems Aortic Valve Aortic ValveAortic Stenosis V11.05m/Chelly Mean GR.mmHg V21.30m/Chelly Peak GR.7mmHg LVOT Diameter2.1 (1.8-2.4cm)Doppler AVA2.80cm2 Tricuspid Valve TR Velocity1.49m/s [id number] Conclusion NORMAL LV EF AND IS 65% NORMAL VALVES NO EFFUSION NORMAL RV FUNCTION RVSP IS 13 MM OF HG AND IS NORMAL
[2025-08-04 05:10] VITALS: BP 101/71; PULSE 78; RESP 19; TEMP 98.1; O2SAT 96
[2025-08-04 07:30] VITALS: PULSE 78; PULSE 98; RESP 19; O2SAT 96
[2025-08-04 09:00] VITALS: BP 115/77; PULSE 94; RESP 18; TEMP 98; O2SAT 96
--- NOTE | 2025-08-04 11:59 | DVHDSRES ---
Discharge Summary Date of Admission Resident Creating Document: MADDIE GARCIA RESIDENT Aug 02, 2025 at 21:32 Date of Discharge: Aug 04, 2025 Admitting Diagnosis #Possible acute CVA #Possible ACS #Hypertensive urgency Wounds: No wounds. Labs/Diagnostic Data: Laboratory Results Test 08/03/25 18:26 08/03/25 06:38 08/03/25 00:20 08/02/25 17:32 White Blood Count 13.6 10^3/uL (4.4-10.8) Red Blood Count 5.39 10^6/uL (4.5-5.90) Hemoglobin 17.2 g/dL (13.5-17.5) Hematocrit 49.1 % (41.0-53.0) Mean Corpuscular Volume 91.2 fL (80.0-100.0) Mean Corpuscular Hemoglobin 31.9 pg (28.0-32.0) Mean Corpuscular Hemoglobin Concent 35.0 g/dL (32.0-36.0) Red Cell Distribution Width 14.2 % (11.8-14.3) Platelet Count 258 10^3/uL (140-450) Mean Platelet Volume 7.2 fL (6.9-10.8) Neutrophils (%) (Auto) 69.4 % (37.0-80.0) Lymphocytes (%) (Auto) 18.3 % (10.0-50.0) Monocytes (%) (Auto) 10.5 % (0.0-12.0) Eosinophils (%) (Auto) 1.5 % (0.0-7.0) Basophils (%) (Auto) 0.3 % (0.0-2.0) Neutrophils # (Auto) 9.5 10 ^3/uL (1.6-8.6) Lymphocytes # (Auto) 2.5 10 ^3/uL (0.4-5.4) Monocytes # (Auto) 1.4 10 ^3/uL (0-1.3) Eosinophils # (Auto) 0.2 10 ^3/uL (0-0.8) Basophils # (Auto) 0 10 ^3/uL (0-0.2) Nucleated Red Blood Cells 0.1 % Sodium Level 139 mmol/L (136-145) Potassium Level 3.9 mmol/L (3.5-5.1) Chloride Level 105 mmol/L (98-107) Carbon Dioxide Level 26 mmol/L (20-31) Anion Gap 8 (5-15) Blood Urea Nitrogen 10 mg/dL (9-23) Creatinine 1.06 mg/dL (0.700-1.30) Glomerular Filtration Rate Calc 79 mL/min (>90) BUN/Creatinine Ratio 9.4 (10.0-20.0) Serum Glucose 91 mg/dL (74-106) Calcium Level 9.3 mg/dL (8.7-10.4) Total Bilirubin 1.1 mg/dL (0.2-1.0) Aspartate Amino Transferase (AST) 22 U/L (13-40) Alanine Aminotransferase (ALT) 27 U/L (7-40) Alkaline Phosphatase 70 U/L (46-116) Total Protein 6.9 g/dL (5.7-8.2) Albumin 4.4 g/dL (3.2-4.8) Thyroid Stimulating Hormone (TSH) 2.45 uIU/mL (0.55-4.78) Urine Color Yellow (Yellow) Urine Clarity Clear (Clear) Urine pH 6.5 (5.0-9.0) Urine Specific [place] 1.021 (1.001-1.035) Urine Protein Trace (Negative) Urine Ketones 2+ (Negative) Urine Blood Negative /uL (Negative) Urine Nitrite Negative (Negative) Urine Bilirubin Negative (Negative) Urine Urobilinogen Normal mg/dL (Negative) Urine Leukocyte Esterase Trace /uL (Negative) Urine RBC 4 /hpf (0 - 3) Urine Microscopic WBC 4 /HPF (0-3) Urine Squamous Epithelial Cells Few /hpf (<5) Urine Bacteria None seen /hpf (None Seen) Urine Mucus Few (None Seen) Urine Glucose Normal mg/dL (Normal) Urine Opiates Screen Neg (NEGATIVE) Urine Fentanyl Screen Neg (NEGATIVE) Urine Barbiturates Screen Neg (NEGATIVE) Urine Phencyclidine Screen Neg (NEGATIVE) Urine Amphetamines Screen Neg (NEGATIVE) Urine Benzodiazepines Screen Neg (NEGATIVE) Urine Cocaine Screen Neg (NEGATIVE) Urine Cannabinoids Screen Neg (NEGATIVE) Magnesium Level 1.9 mg/dL (1.6-2.6) Direct Bilirubin 0.2 mg/dL (<0.3) Troponin I High Sensitivity < 3 ng/L (</=54) Test 08/02/25 14:45 Platelet Estimate Adequate Red Blood Cell Morphology Normal B-Type Natriuretic Peptide 4.92 pg/mL (0-100) Other Laboratory Tests 08/03/25 18:26 Brief Hx & Hospital Course: Clemente Alfonso is a 60-year-old male, with a past medical history of GERD, hypertension and nephrolithiasis. The patient came to the [facility] ED with a e chief complaints of 1 day of feeling unwell and high blood pressure. Patient reports that he was having slight diaphoresis, ringing of the ears more than usual, dizziness, nausea, mild right shoulder pain for which he checked his blood pressure at home, showed 172/106 mmHg for which she decided to visit the ER. Patient denies any vomiting, fever, chills, palpitations, chest pain, shortness of breath or any urinary symptoms. On further questioning he reports that he took tadalafil yesterday night which usually causes his heart rate to increase, he takes testosterone at home. He reported that he decreased his blood pressure medication metoprolol succinate from 25 mg to 10 mg. On admission patient's HR:120, temp 98.4, RR 18, BP 155/98 mmHg, SpO2 99% in RA. WBC 11.8, hemoglobin 17.8. Chest x-ray shows no evidence of acute distress. The patient was admitted for further workup and management. Past medical history: As stated above Past surgical history: cholecystectomy ankle and knee surgery family history: Heart disease and hypertension in father, grandfather and uncles who also of [place] social history: patient used to smoke when he was younger and has restarted smoking since last 2 months 2 cigarettes/day and chews tobacco. Denies any alcohol or illicit drug abuse Primary care physician: Dr. He at [facility] medication: Metoprolol succinate 10 mg, pantoprazole 40 mg, tadalafil Allergies: Seasonal, no known medical allergy Hospital course: The the patient was evaluated and examined at the bedside, vital signs laboratory and chart was reviewed; his hemoglobin is elevated, possible due to testosterone use. Echo was performed: Normal left ventricular ejection fraction 65% normal bowel no effusion, normal right ventricular function, the RVSP is 13. The patient was initiated on metoprolol and lisinopril, this improved his BP to levels within normal limits. Today, the patient reports feeling well, no new complaints. Due to clinical improvement the patient will be discharged home today. The patient will follow-up with primary care doctor in 1 week. ROS: Constitutional: Yes: dizziness resolved; No: Fever, Chills, Sweats, Weakness, Malaise Eyes: No: Pain, Vision change, Conjunctivae inflammation, Eyelid inflammation, Other, Redness ENT: Other (Tinnitus); No: Ear pain, Ear discharge, Nose pain, Nose discharge, Nose congestion, Mouth pain, Mouth swelling, Throat pain, Throat swelling Respiratory: No: Cough, Dry, Shortness of breath, SOB with excertion, Wheezing, Hemoptysis, Pleuritic Pain, Sputum, Wheezing, Other Cardiovascular: No: Chest Pain, Palpitations, Orthopnea, Paroxysmal Noc. Dyspnea, Edema, Lt Headedness, Other Gastrointestinal: Nausea resolved; No: Vomiting, Abdominal Pain, Diarrhea, Constipation, Melena, Hematochezia, Other Genitourinary: No Dysuria, No Frequency, No Incontinence, No Hematuria, No Retention, No Other Musculoskeletal: No: other, neck pain, shoulder pain, arm pain, back pain, hand pain, leg pain, foot pain Skin: No: Rash, Lesions, Jaundice, Bruising, Other Neurological: No: Weakness, Numbness, Incoordination, Change in speech, Confusion, Seizures, Other Allergies: Not known allergies Physical exam: General Appearance: Alert, Oriented X3, Cooperative, Not in acute distress HEENT: Atraumatic, Mucous membranes moist/pink Respiratory: Clear to auscultation, Normal air movement, No added sounds Cardiovascular: Regular rate, Normal S1, Normal S2, No murmurs Abdominal: Active bowel sounds, Soft, no distention, no tenderness Extremities: No edema, Normal pulses, No tenderness/swelling Skin: No Significant rash, except past surgical scars, face is slightly flushed Neuro: Normal speech, sensorimotor deficits none Psych/Mental Status: Mental status NL, Mood NL Operations or Procedures CHEST RADIOGRAPH Indication: CP Technique: Frontal and lateral view of the chest was obtained Comparison: CHEST PORTABLE on DOS: 12/02/21, CHEST PORTABLE on DOS: 03/01/21 FINDINGS: Lines and Tubes: None Lungs: Clear Pleura: No effusion. No pneumothorax. Cardiomediastinal contours: Unremarkable Bones: Unremarkable IMPRESSION: No evidence of acute disease. EDURE(s): CARCL - CAROTID DUPLX W COLOR DOP REASON: dizziness ORDER NUMBER(s): [id number], ACCESSION NUMBER(s): [id number] Carotid Duplex Clinical History: dizziness Comparison: None Technique: Duplex Doppler evaluation of the extracranial carotid and vertebral arteries including color Doppler and spectral/pulsed waveform analysis was performed. Findings: RIGHT SIDE: The peak systolic velocities are 119 cm/s in the CCA, 91 cm/s in the ICA. The ICA/CCA ratio is 0.76. The external carotid artery is patent with peak systolic velocity of 151 cm/s proximally. There is appropriate antegrade flow in the right vertebral artery. No significant atherosclerotic plaque. LEFT SIDE: The peak systolic velocities are 127 cm/s in the CCA, 71 cm/s in the ICA. The ICA/CCA ratio is 0.56. The external carotid artery is patent with peak systolic velocity of 120 cm/s proximally. There is appropriate antegrade flow in the left vertebral artery. No significant atherosclerotic plaque. Bilateral thyroid lobe heterogeneous and cystic structures measure up to 1.0 cm on the right and 0.7 cm on the left. IMPRESSION: 1. No hemodynamically significant stenosis noted in the right carotid system. 2. No hemodynamically significant stenosis noted in the left carotid system. 3. Elevated velocity of the right external carotid artery. 4. Bilateral thyroid lobe heterogeneous and cystic structures as discussed above. Nonemergent thyroid ultrasound recommended for further evaluation. Reference: Radiology 2003; 229:340-346 Normal ICA PSV is <125 cm/sec and no plaque or intimal thickening is visible sonographically additional criteria include ICA/CCA PSV ratio <2.0 and ICA EDV <40 cm/sec <50% ICA stenosis ICA PSV is <125 cm/sec and plaque or intimal thickening is visible sonographically additional criteria include ICA/CCA PSV ratio <2.0 and ICA EDV <40 cm/sec 50-69% ICA stenosis ICA PSV is 125-230 cm/sec and plaque is visible sonographically additional criteria include ICA/CCA PSV ratio of 2.0-4.0 and ICA EDV of 40-100 cm/sec 70% ICA stenosis but less than near occlusion ICA PSV is >230 cm/sec and visible plaque and luminal narrowing are seen at richards-scale and color Doppler ultrasound (the higher the Doppler parameters lie above the threshold of 230 cm/sec, the greater the likelihood of severe disease) additional criteria include ICA/CCA PSV ratio >4 and ICA EDV >100 cm/sec HEAD WITHOUT CONTRAST INDICATION: DIZZINESS EXAM DATE: 08/03/2025 09:13 AM COMPARISON: HEAD WITHOUT CONTRAST on DOS: 12/02/21 RADIATION DOSE: CTDIvol: 59 mGy, DLP: 1056 mGy*cm PROCEDURE: CT scans of the head were obtained from the vertex to the skull base. Sagittal and coronal reconstructions were provided. All CT scans at this medical facility are performed using dose modulation techniques as appropriate to a performed exam including the following: Automated exposure control was utilized; adjustment of the MA and/or KV according to patient size; and use of iterative reconstruction technique. FINDINGS: There is sulcal and ventricular prominence. The brainshows normal morphology and richards-white matter differentiation, without intracranial hemorrhage, extra-axial fluid collection, mass effect or acute large vessel infarct. The ventricles are normal in size. The basal cisterns are patent. The skull and visible facial bones are intact. The paranasal sinuses, mastoid air cells and middle ear cavities are well-aerated. The soft tissues of the scalp are unremarkable. IMPRESSION: No acute intracranial abnormality. DURE(s): ECIDC - ECHO 2D MODE CARDIAC DOP REASON: chest pain ORDER NUMBER(s): [id number], ACCESSION NUMBER(s): [id number] APPROVED REPORT EXAM: Two-dimensional and M-mode echocardiogram with Doppler and color Doppler. Blood Pressure: 116/74 mmHg INDICATION Chest Pain RISK FACTORS Height: 5'6, Weight: 198 DIMENSIONS LVDd 4.6 (3.8-5.7cm) LA (2D) 4.5 (1.9-4.0cm) Aortic Root 3.2 (2.0- 3.7cm) LVDs 3.3 (2.5-4.0cm) LA (MM) (1.9-4.0cm) Aortic Cusp Exc 1.4 (1.5- 2.0cm) EF (%) 55.0 (55-70%) Rt. Atrium 2.9 (1.9-4.0cm) Asc. Aorta cm IVSd 0.9 (0.7-1.1cm) RV (D) 3.6 (1.8-2.4cm) PWd 0.8 (0.7-1.1cm) Mitral Valve Mitral Mitral Stenosis E wave 1.06m/s MV Mean GR. mmHg A wave 1.34m/s MV Peak GR. 66mmHg E/A ratio 0.8 2D MVA cm2 DECEL Time 145ms PRESS 1/2 Time ms Aortic Valve Aortic Valve Aortic Stenosis V1 1.05m/s AO Mean GR. mmHg V2 1.30m/s AO Peak GR. 7mmHg LVOT Diameter 2.1 (1.8-2.4cm) Doppler YURI 2.80cm2 Tricuspid Valve TR Velocity 1.49m/s RVSP 13mmHg Conclusion NORMAL LV EF AND IS 65% NORMAL VALVES NO EFFUSION NORMAL RV FUNCTION RVSP IS 13 MM OF HG AND IS NORMAL SIGNED BY: JONNY MARTINEZ MD SIGNED DATE/TIME: 08/04/25 3819 CC: Condition at Discharge: Stable Final Diagnosis/Problems List #Possible acute CVA, ruled out #Possible ACS, ruled out #Hypertension urgency #Acute Autonomic dysfunction, possibly medicine induced (tadalafil) #Acute Secondary polycythemia due to possible RDAHA #Chronic Bilateral thyroid lobe heterogeneous and cystic structures #Obesity, BMI 32.0 kg/m2 Discharge Disposition: Home SNF Discharge Will this Physician continue t: No Discharge Instruct/Medications Diet: Cardiac 2g Na,low cholest Activity: No Restrictions, As Tolerated Follow Up/Referral: F/U in discharge clinic in one week, F/U with PCP in 1 week Medications: Metoprolol 25mg po daily Losartan 25mg po daily Scheduled Losartan Potassium (Losartan Potassium), 1 TAB PO DAILY Metoprolol Succinate (Metoprolol Succinate Er), 25 MG PO DAILY, (Reported) Misc Natural Products (Saw [place]), Unknown Dose PO DAILY, (Reported) Multiple Vitamins W/ Minerals (Multivitamin), 1 TAB PO DAILY, (Reported) Pantoprazole Sodium Sesquihydr (Pantoprazole Sodium), 40 MG PO DAILY, (Reported) Tadalafil (Cialis), 20 MG PO PRN, (Reported) Discharge Statement: "Patient was advised to return to the ER or call 911 if any headaches, dizziness, shortness of breath, chest pain, abdominal pain, bleeding, fevers, or worsening of medical condition. Patient was counseled about treatment plan, medications, possible side effects, patientverbalized understanding. All questions were answered to the best of my ability. This discharge took greater then 30 minutes in planning, reviewing documentation, counseling the patient, and discussing with other team members." ASSESSMENT ASSESSMENT Assessment #Possible acute CVA, ruled out #Possible ACS #Hypertension urgency #Acute Autonomic dysfunction, possibly medicine induced (tadalafil) # Acute Secondary polycythemia due to possible RADHA #Chronic Bilateral thyroid lobe heterogeneous and cystic structures #Obesity, BMI 32.0 kg/m2 Diet: Low carbohydrate and cardiac diet Goals of care discussed with the patient > 35 min. Discussed plan of care with Julieth Lazo Code status: Full code PCP: Non S. Plan discussed with: Patient, the patient agrees with the discharge plan. Date of Service: Aug 04, 2025 Billing Provider: PAT LAZO MD Common Visit Codes: 16497-GEX/OBS DISCH DAY >30min MADDIE GARCIA RESIDENT Aug 04, 2025 11:59 PAT LAZO MD Aug 05, 2025 00:00
[2025-08-04] MEDS ORDERED: LOSA-533 PO (12:05)
[2025-08-04 13:28] VITALS: BP 124/85; PULSE 87; RESP 18; TEMP 98.1; O2SAT 97
--- NOTE | 2025-08-06 13:55 | ECG ---
[facility] Test Date: 2025-08-02 Test Time: 14:40:20 Pat Name: DEMETRIUS MONAHAN Department: ED Room: 0251T B Gender: M Maintainability Engineer: morales : 1965 Requested By: TONY ABURTO Order Number: [id number] Reading MD: James Bhatt Measurements Intervals [place] Rate: 103 P: 64 MI: 156 QRS: 45 QRSD: 83 T: 43 QT: 304 QTc: 398 Interpretive Statements Sinus tachycardia Probable left atrial enlargement Electronically Signed On 08-07-2025 13:27:27 PST by James Bhatt Please click the below link to view image of tracing.
== END 2025-08-04 14:04 | disposition home or self-care (01) | DRG 305 ==
LOC: ER 14:31 → OVERFLOW 21:32 → TELE-EAST 23:49
PROVIDERS: ADMIT Internal Medicine; ATTEND Internal Medicine
DX: I16.0 Hypertensive urgency (principal); G47.33 Obstructive sleep apnea (adult) (pediatric); K21.9 Gastro-esophageal reflux disease without esophagitis; F17.210 Nicotine dependence, cigarettes, uncomplicated; I10 Essential (primary) hypertension; D75.1 Secondary polycythemia; G90.9 Disorder of the autonomic nervous system, unspecified; E66.9 Obesity, unspecified; T46.7X5A Adverse effect of peripheral vasodilators, initial encounter; Z90.49 Acquired absence of other specified parts of digestive tract; Z82.49 Family history of ischemic heart disease and other diseases of the circulatory system; Z68.32 Body mass index [BMI] 32.0-32.9, adult; Y92.89 Other specified places as the place of occurrence of the external cause; Z87.442 Personal history of urinary calculi
CPT/HCPCS: 36415; 70450; 71046; 80048; 80053; 80076; 80307; 81001; 83735; 83880; 84443; 84484; 85025; 93005; 93306; 93886; 96374; 99291; G0378